=== PATIENT | female | born 1970 | race Caucasian/White ===

== ENCOUNTER 2025-06-15 01:22 | Emergency (ER) | payer MEDICAID ==
[2025-06-15 01:41] LABS: BASOPHILS ABSOLUTE AUTO 0.04 K/uL (0.00-0.20); BASOPHILS PERCENT AUTO 0.3 % (0.0-1.0); EOSINOPHILS ABSOLUTE AUTO 0.23 K/uL (0.00-0.45); EOSINOPHILS PERCENT AUTO 1.7 % (0.0-6.0); IMMATURE GRAN ABSOLUTE AUTO 0.04 K/uL (0.00-0.05); IMMATURE GRAN PERCENT AUTO 0.3 % (0.0-0.4); LYMPHOCYTES ABSOLUTE AUTO 4.04 K/uL (1.00-4.80); LYMPHOCYTES PERCENT AUTO 29.9 % (24.0-44.0); MEAN PLATELET VOLUME 10.5 fL (9.4-12.3); MONOCYTES ABSOLUTE AUTO 0.96 K/uL (0.00-0.80); MONOCYTES PERCENT AUTO 7.1 % (0.0-8.0); NEUTROPHILS ABSOLUTE AUTO 8.21 K/uL (1.80-7.70); NEUTROPHILS PERCENT AUTO 60.7 % (41.0-71.0); NRBC ABSOLUTE 0.00 K/uL (0.00-0.02); NRBC PERCENT 0.0 /100WBC (0.0-0.2); PLATELET COUNT,PLT 261 K/uL (150-400); RED BLOOD CELL COUNT 4.71 M/uL (4.10-5.30); WHITE BLOOD CELL COUNT,WBC 13.52 K/uL (3.9-11.3)
[2025-06-15] MEDS: Sodium Chloride 0.9% 10 ML Syringe FLUSH PRN (01:42)
[2025-06-15] MEDS: Sodium Chloride 0.9% 2.5 ML Syringe FLUSH PRN (01:42)
[2025-06-15 01:55] LABS: INR 0.96 (0.86-1.11)
[2025-06-15 02:14] LABS: A/G RATIO 1.0 (0.9-1.6); ALANINE AMINOTRANSFERASE,ALT 20 IU/L (14-63); ASPARTATE AMNIOTRANSFERASE,AST 13 IU/L (15-37); BILIRUBIN TOTAL 0.5 mg/dL (0.2-1.0); BLOOD UREA NITROGEN,BUN 11 mg/dL (7.0-18.0); CARBON DIOXIDE,CO2 26.0 mmol/L (21.0-32.0); CHLORIDE,CL 105 mmol/L (98-107); CREATININE 0.7 mg/dL (0.6-1.0); GLUCOSE RANDOM 108 mg/dL (74-106); POTASSIUM,K 3.9 mmol/L (3.5-5.1); PRO B-TYPE NATRIUR PEPT,BNPPRO 107 pg/mL (0-125); PROTEIN TOTAL,TP 7.5 g/dL (6.4-8.2); SODIUM,NA 140 mmol/L (136-145)
[2025-06-15 02:15] LABS: ESTIMATED GFR 104 mL/min (>60)
[2025-06-15 02:40] LABS: TSH ULTRASENSITIVE < 0.01 uIU/mL (0.36-3.74)
[2025-06-15 02:57] LABS: T4 FREE 2.11 ng/dL (0.76-1.46)
[2025-06-15 03:06] LABS: APPEARANCE,URINE CLEAR; GLUCOSE,URINE NEGATIVE (NEGATIVE); OCCULT BLOOD,URINE NEGATIVE (NEGATIVE)
== END 2025-06-15 03:50 | disposition home or self-care (01) ==
LOC: MW.ED 01:22
DX: G43.909 Migraine, unspecified, not intractable, without status migrainosus (principal); R07.9 Chest pain, unspecified; E86.0 Dehydration; E05.90 Thyrotoxicosis, unspecified without thyrotoxic crisis or storm; Z53.20 Procedure and treatment not carried out because of patient's decision for unspecified reasons
CPT/HCPCS: 36415; 70450; 71045; 80053; 81003; 83690; 83880; 84439; 84443; 84481; 84484; 85025; 85379; 85610; 86308; 93005; 96360; 99285; J7030; 93010; 99284